=== PATIENT | female | born 1980 | race Caucasian/White ===

== ENCOUNTER 2020-04-13 12:25 | Emergency (ER) | payer OTHER ==
[2020-04-13] MEDS ORDERED: HYDROCODONE/APAP 10/325 TAB ONE (13:19)
[2020-04-13] MEDS ORDERED: METHYLPREDNISOLONE 125 MG INJ ONE (13:19)
[2020-04-13] MEDS ORDERED: KETOROLAC 30 MG/ML INJ ONE (13:20)
--- NOTE | 2020-04-13 14:00 | EDPHYS ---
Physician Documentation [facility] Name: Radha Ch Age: 40 yrs Sex: Female : 1980 Arrival Date: 04/13/2020 Time: 12:28 Bed 7 Private MD: ED Physician Tobias Dial HPI: 04/13 16:08 This 40 yrs old Female presents to ER via Ambulatory with complaints of Low kdr Back Pain. 16:08 The patient presents with pain that is acute. The symptoms are located in the low back. kdr The pain radiates to the low back area. The problem was sustained during a fall, The patient has chronic back pain but she fell yesterday wrenching her back and exacerbating her chronic pain. She denies any bowel or bladder control changes.. Onset: The symptoms/episode began/occurred just prior to arrival. Modifying factors: The patient symptoms are alleviated by nothing, the patient symptoms are aggravated by any movement, bending. Associated signs and symptoms: The patient has no apparent associated signs or symptoms. Severity of symptoms: At their worst the symptoms were moderate, in the emergency department the symptoms are unchanged. The patient has not experienced similar symptoms in the past. The patient has not recently seen a physician. 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 - Social history:: Smoking status: Patient reports the use of cigarette tobacco products, smokes one pack cigarettes per day. ROS: 16:08 Constitutional: Negative for fever, chills, and weight loss, Eyes: Negative for injury, kdr pain, redness, and discharge, ENT: Negative for injury, pain, and discharge, Neck: Negative for injury, pain, and swelling, Cardiovascular: Negative for chest pain, palpitations, and edema, Respiratory: Negative for shortness of breath, cough, wheezing, and pleuritic chest pain, Abdomen/GI: Negative for abdominal pain, nausea, vomiting, diarrhea, and constipation, : Negative for injury, bleeding, discharge, and swelling, MS/Extremity: Negative for injury and deformity, Skin: Negative for injury, rash, and discoloration, Neuro: Negative for headache, weakness, numbness, tingling, and seizure activity. Psych: Negative for depression, anxiety, suicide ideation, homicidal ideation, and hallucinations, Allergy/Immunology: Negative for hives, rash, and allergies, Endocrine: Negative for neck swelling, polydipsia, polyuria, polyphagia, and marked weight changes, Hematologic/Lymphatic: Negative for swollen nodes, abnormal bleeding, and unusual bruising. 16:08 Back: Positive for decreased range of motion, pain at rest, pain with movement, Negative for Exam: 16:08 Constitutional: This is a well developed, well nourished patient who is awake, alert, kdr and in no acute distress. Head/Face: Normocephalic, atraumatic. Eyes: Pupils equal round and reactive to light, extra-ocular motions intact. Lids and lashes normal. Conjunctiva and sclera are non-icteric and not injected. Cornea within normal limits. Periorbital areas with no swelling, redness, or edema. 16:08 Musculoskeletal/extremity: ROM: no acute changes, Circulation is intact in all extremities. Sensation intact. Vital Signs: 12:33 BP 135 / 97; Pulse 98; Resp 16 S; Temp 98.2(O); Pulse Ox 98% on R/A; Weight 97.98 kg; iw Height 5 ft. 4 in. (162.56 cm); Pain 10/10; 12:42 BP 140 / 77; Pulse 92; Resp 18; Pulse Ox 97% on R/A; Pain 10/10; ks7 13:29 BP 130 / 89; Pulse 87; Resp 18; Pulse Ox 98% on R/A; Pain 7/10; ks7 14:06 BP 125 / 75; Pulse 73; Resp 18; Temp 98(TE); Pulse Ox 99% on R/A; Pain 2/10; ks7 12:33 Body Mass Index 37.08 (97.98 kg, 162.56 cm) iw MDM: 13:59 Patient medically screened. kdr 16:08 Data reviewed: vital signs, nurses notes. Counseling: I had a detailed discussion with kdr the patient and/or guardian regarding: the historical points, exam findings, and any diagnostic results supporting the discharge/admit diagnosis, lab results, the need for outpatient follow up. Administered Medications: 13:15 Drug: TORadol - Ketorolac 15 mg Route: IM; Site: left gluteus; bp 13:15 Drug: SOLU-Medrol 125 mg Route: IM; Site: left gluteus; bp 13:15 Drug: [place] 10 mg-325 mg 1 tabs Route: PO; bp Disposition: 04/13/20 13:59 Discharged to Home. Impression: Low back pain. - Condition is Stable. - Discharge Instructions: Back Injury Prevention, [id number], Back Pain, Adult, [id number]-[id number], Back Exercises, Urir-cr-Porw. - Prescriptions for Ibuprofen 600 mg Oral Tablet - take 1 tablet by ORAL route every 6 hours As needed take with food; 30 tablet. Robaxin 500 mg Oral Tablet - take 2 tablet by ORAL route every 6 hours As needed; 40 tablet. Tramadol 50 mg Oral Tablet - take 1 tablet by ORAL route every 8 hours as needed; 12 tablet. Medrol ([place]) 4 mg Oral Tablets, Dose Pack - take 1 tablet by ORAL route as directed - follow package instructions; 1 packet. - Medication Reconciliation Form, Thank You Letter, Prescription Opioid Use form. - Follow up: Private Physician; When: 2 - 3 days; Reason: If symptoms return, Further diagnostic work-up, Recheck today's complaints, Continuance of care, Re-evaluation by your physician. - Problem is new. - Symptoms have improved. Signatures: Tobias Dial MD MD [facility] Mandy Cueto RN RN iw Seymour Mccray RN RN bp Songcuan, Kathleen, RN RN ks7 Corrections: (The following items were deleted from the chart) 14:07 13:59 04/13/2020 13:59 Discharged to Home. Impression: Low back pain. Condition is ks7 Stable. Forms are Medication Reconciliation Form, Thank You Letter, Antibiotic Education, Prescription Opioid Use. Follow up: Private Physician; When: 2 - 3 days; Reason: If symptoms return, Further diagnostic work-up, Recheck today's complaints, Continuance of care, Re-evaluation by your physician. Problem is new. Symptoms have improved. kdr
--- NOTE | 2020-04-13 14:00 | ER ---
Nurse's Notes [facility] Name: Radha Ch Age: 40 yrs Sex: Female : 1980 Arrival Date: 04/13/2020 Time: 12:28 Bed 7 Private MD: Diagnosis: Low back pain Presentation: 04/13 12:33 Chief complaint: Patient states: lower back pain for 10 years has degenerative iw arthritis in spine, fell yesterday , tripped as she was carrying stuff inside RV, can't sit or lay comfortably, takes gabapentin for her pain. Coronavirus screen: Client denies travel out of the [place] in the last 14 days. Patient denies a cough. Patient denies shortness of breath or difficulty breathing. Patient denies measured and/or subjective temperature greater than 100.4F prior to today's visit. Patient denies travel on a cruise ship or to a country the [facility] currently lists as an affected area. Patient denies contact with known and/or suspected case of COVID-19. Ebola Screen: Patient negative for fever greater than or equal to 101.5 degrees Fahrenheit, and additional compatible Ebola Virus Disease symptoms Patient denies exposure to infectious person. Patient denies travel to an Ebola-affected area in the 21 days before illness onset. No symptoms or risks identified at this time. Initial Sepsis Screen: Does the patient meet any 2 criteria? No. Patient's initial sepsis screen is negative. Does the patient have a suspected source of infection? No. Patient's initial sepsis screen is negative. Risk Assessment: Do you want to hurt yourself or someone else? Patient reports no desire to harm self or others. Onset of symptoms was April 12, 2020. 12:33 Method Of Arrival: Ambulatory iw 12:33 Acuity: HARMEET 4 iw Triage Assessment: 12:42 General: Appears uncomfortable, obese, Behavior is cooperative. Pain: Complains of pain ks7 in back Pain radiates to buttocks Pain currently is 10 out of 10 on a pain scale. Quality of pain is described as throbbing, Pain began Is continuous, Current management is with gabapentin 600 mg BID is ineffective. 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 - Social history:: Smoking status: Patient reports the use of cigarette tobacco products, smokes one pack cigarettes per day. Screenin:46 Abuse screen: Denies threats or abuse. Denies injuries from another. Nutritional ks7 screening: No deficits noted. Tuberculosis screening: No symptoms or risk factors identified. Fall Risk None identified. Assessment: 12:46 General: Appears Reports pt c/o back pain, has chronic back pain degenerative, sx worse ks7 today, unabe to get comfortable. Musculoskeletal: Reports pain in back and buttocks since worse in last 2 days, chronic issue, takes gabapentin. Pain is 10 out of 10 on a pain scale. 13:15 Reassessment: PT AMBULATED TO RESTROOM WITH STEADY GAIT. bp 14:07 Reassessment: Patient is alert, oriented x 3, equal unlabored respirations, skin ks7 warm/dry/pink. Patient states feeling better. Vital Signs: 12:33 BP 135 / 97; Pulse 98; Resp 16 S; Temp 98.2(O); Pulse Ox 98% on R/A; Weight 97.98 kg; iw Height 5 ft. 4 in. (162.56 cm); Pain 10/10; 12:42 BP 140 / 77; Pulse 92; Resp 18; Pulse Ox 97% on R/A; Pain 10/10; ks7 13:29 BP 130 / 89; Pulse 87; Resp 18; Pulse Ox 98% on R/A; Pain 7/10; ks7 14:06 BP 125 / 75; Pulse 73; Resp 18; Temp 98(TE); Pulse Ox 99% on R/A; Pain 2/10; ks7 12:33 Body Mass Index 37.08 (97.98 kg, 162.56 cm) ED Course: 12:28 Patient arrived in ED. ag5 12:35 Triage completed. iw 12:38 Brianna Gaming, RN is Primary Nurse. ks7 12:42 Arm band placed on right wrist. Patient placed in the treatment room, in a wheelchair, ks7 on pulse oximetry. 12:46 Resting quietly. ks7 12:46 Patient has correct armband on for positive identification. Bed in low position. Call ks7 light in reach. Side rails up X2. 12:46 No provider procedures requiring assistance completed. ks7 12:47 Tobias Dial MD is Attending Physician. kdr 14:07 Patient did not have IV access during this emergency room visit. ks7 Administered Medications: 13:15 Drug: TORadol - Ketorolac 15 mg Route: IM; Site: left gluteus; bp 13:15 Drug: SOLU-Medrol 125 mg Route: IM; Site: left gluteus; bp 13:15 Drug: [place] 10 mg-325 mg 1 tabs Route: PO; bp Outcome: 13:59 Discharge ordered by . kdr 14:07 Discharged to home ambulatory. ks7 14:07 Condition: good 14:07 Discharge instructions given to patient, Instructed on discharge instructions, medication usage, Demonstrated understanding of instructions, medications, Prescriptions given X 4. 14:07 Patient left the ED. ks7 Signatures: Tobias Dial MD MD kdr Mandy Cueto RN RN Seymour Mccray RN RN [place]serrat Mayo ag5 Brianna Gaming, LIZA RN ks7 Corrections: (The following items were deleted from the chart) 12:37 12:33 BP 135 / 97; Pulse 98bpm; Resp 16bpm; Spontaneous; Pulse Ox 98% RA; 97.98 kg; iw Height 5 ft. 4 in.; BMI: 37.0; Pain 10/10; iw
[2020-04-13 14:19] VITALS: BP 125/75; TEMP 98; O2SAT 99
== END 2020-04-13 14:07 | disposition home or self-care (01) ==
LOC: ER 12:25
DX: M54.5 Low back pain (principal); I10 Essential (primary) hypertension; F17.210 Nicotine dependence, cigarettes, uncomplicated; W19.XXXA Unspecified fall, initial encounter
CPT/HCPCS: 96372; 99283; J2930